=== PATIENT | male | born 1965 | race Caucasian/White ===

== ENCOUNTER 2018-08-23 09:32 | Emergency (ER) | payer OTHER ==
[~2018-08-23] VITALS: Ht 177.8 cm; Wt 73.0 kg
[2018-08-23] MEDS ORDERED: SODIUM CHLORIDE FLUSH 10ML SYR IVF ONE ×2 (10:30→12:00)
[2018-08-23 10:40] LABS: BASOPHILS # (AUTO) 0.02 x10^3/uL (0-0.1); BASOPHILS % (AUTO) 0 % (0-1); EOSINOPHILS # (AUTO) 0.09 x10^3/uL (0-0.4); EOSINOPHILS % (AUTO) 1 % (1-7); LYMPHOCYTES # (AUTO) 0.53 x10^3/uL (1-3.4); LYMPHOCYTES % (AUTO) 8 % (22-44); MD NO; MEAN CORPUSCULAR HGB CONC 32.7 g/dL (33.2-36.2); MEAN CORPUSCULAR VOLUME 76.3 fL (81-97); MEAN PLATELET VOLUME 6.8 fL (7.4-10.4); MONOCYTES # (AUTO) 0.48 x10^3/uL (0.2-0.8); MONOCYTES % (AUTO) 7 % (2-9); NEUTROPHILS # (AUTO) 5.91 x10^3/uL (1.8-6.8); NEUTROPHILS % (AUTO) 84 % (42-75); PLATELET COUNT 588 x10^3/uL (130-400); RED BLOOD COUNT 5.59 x10^6/uL (4.38-5.82); RED CELL DISTRIBUTION WIDTH 15.1 % (9.4-14.8)
[2018-08-23 10:53] LABS: ALANINE AMINOTRANSFERASE 13 U/L (12-78); ALBUMIN 2.8 g/dL (3.4-5.0); ANION GAP 8 mmol/L (5-15); CALCIUM 8.5 mg/dL (8.5-10.1); CHLORIDE 101 mmol/L (98-107); CREATININE 1.72 mg/dL (0.7-1.3)
[2018-08-23 10:55] LABS: ALKALINE PHOSPHATASE 60 U/L (45-117); BILIRUBIN,TOTAL 1.4 mg/dL (0.2-1.0); TOTAL PROTEIN 6.4 g/dL (6.4-8.2)
[2018-08-23] MEDS ORDERED: PLEASE ENTER HEIGHT AND WEIGHT MC SCH (11:00)
[2018-08-23] MEDS ORDERED: [UNRECOGNIZED DRUG - REMARK] PO (11:36)
[2018-08-23] MEDS ORDERED: LIDOCAINE-MPF 1%, 5ML ONE (11:55)
[2018-08-23] MEDS ORDERED: ALBUMIN HUMAN 25% 100 ML IV ONE (12:00)
[2018-08-23 14:17] VITALS: BP 102/61
== END 2018-08-23 14:21 | disposition home or self-care (01) ==
LOC: ED 14:15
DX: C81.90 Hodgkin lymphoma, unspecified, unspecified site (principal); R18.0 Malignant ascites; J90 Pleural effusion, not elsewhere classified
CPT/HCPCS: 32555; 36415; 49083; 74022; 80053; 82042; 83615; 85025; 87070; 87205; 88112; 88305; 89051; 96365; 99285; P9047

== ENCOUNTER 2018-09-05 00:56 | Inpatient (IN) | payer OTHER ==
[~2018-09-05] VITALS: Ht 177.8 cm; Wt 77.8 kg
[~2018-09-05 00:56] MED LIST: ALLO300T PO; ONDA8TAB16 PO; PRED50TA PO; [UNRECOGNIZED DRUG - REMARK] PO
--- NOTE | 2018-09-05 01:39 | NUR ---
PT. TO ED WITH C/O SOB R/T "IT FEELS LIKE MY LUNGS ARE FILLNIG WITH FLUID AGAIN". AT BS WITH PT. HE WAS JUST D/C LAST NIGHT. PT. 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 PT. REPORTS "THEY TAPPED MY LUNG AND MY STOMACH ON SUNDAY, I THINK IT NEEDS DONE AGAIN". PT. O2 SAT 97% ON RA; ABLE TO SPEAK IN FULL SENTENCES. CONTINUOUS PULSE OX AND B/P MONITORS PLACED. CALL LIGHT IN REACH; PT. TRANSPORTED TO X-RAY AT THIS TIME; WILL DRAW BLOOD FROM PICC UPON RETURN TO ROOM.
--- NOTE | 2018-09-05 02:05 | NUR ---
BLOOD DRAWN FROM PICC AND CLAVE CHANGED USING STERILE TECHNIQUE; BLOOD SENT TO LAB. PT. AMBULATORY TO BR WITH STEADY GAIT, HAS URINAL IN HAND AND IS READY TO PROVIDE URINE SAMPLE. PT. DECLINED TO STAY IN ROOM TO USE BSC AND INSISTED ON AMBULATING TO BR.
[2018-09-05 02:14] LABS: MEAN CORPUSCULAR HEMOGLOBIN 25.9 pg (27.5-34.5); MEAN CORPUSCULAR HGB CONC 33.1 g/dL (33.2-36.2); MEAN CORPUSCULAR VOLUME 78.2 fL (81-97); MEAN PLATELET VOLUME 6.4 fL (7.4-10.4); PLATELET COUNT 352 x10^3/uL (130-400); RED BLOOD COUNT 5.42 x10^6/uL (4.38-5.82); RED CELL DISTRIBUTION WIDTH 16.2 % (9.4-14.8)
--- NOTE | 2018-09-05 02:22 | NUR ---
LUBRICATION SERVICER PLACED WHEN PT. RETURNED FROM ROOM. URINE COLLECTED AND SENT TO LAB. CALL LIGHT IN REACH. AT BS FOR SUPPORT. DR. OSMAN IN TO EVAL PT. AND DISCUSS POC.
[2018-09-05 02:24] LABS: INTERNATIONAL NORMALIZED RATIO 1.01 (0.93-1.1); PROTHROMBIN TIME 10.7 Seconds (9.6-11.5)
[2018-09-05 02:28] LABS: MICROSCOPIC AUTO
[2018-09-05 02:28] LABS: ALANINE AMINOTRANSFERASE 11 U/L (12-78); ALBUMIN 1.9 g/dL (3.4-5.0); ANION GAP 6 mmol/L (5-15); CHLORIDE 108 mmol/L (98-107); CREATININE 0.97 mg/dL (0.7-1.3)
[2018-09-05 02:29] LABS: CULTURE INDICATED? NO
[2018-09-05 02:33] LABS: ALKALINE PHOSPHATASE 48 U/L (45-117); BASOPHILS % (AUTO) 0 % (0-1); EOSINOPHILS # (AUTO) 0.01 x10^3/uL (0-0.4); EOSINOPHILS % (AUTO) 0 % (1-7); LYMPHOCYTES # (AUTO) 0.23 x10^3/uL (1-3.4); LYMPHOCYTES % (AUTO) 1 % (22-44); MD SCAN; MONOCYTES # (AUTO) 0.09 x10^3/uL (0.2-0.8); MONOCYTES % (AUTO) 0 % (2-9); NEUTROPHILS # (AUTO) 27.99 x10^3/uL (1.8-6.8); NEUTROPHILS % (AUTO) 99 % (42-75); TOTAL PROTEIN 4.7 g/dL (6.4-8.2)
--- NOTE | 2018-09-05 02:54 | NUR ---
VS UPDATED. PT. CHART UP FOR RECHECK BY BRAULIO. PT. NIKOINS RESTING ON GURNEY IN SITTING POSITION. O2 SAT REMAINS 95% ON RA. PT. DENIES NEEDS AT THIS TIME. CALL LIGHT IN REACH. ALL SAFETY MEASURES OBSERVED. REMAINS AT BS FOR SUPPORT.
--- NOTE | 2018-09-05 03:51 | NUR ---
PT. CONTINUES RESTING ON GURNEY WITH NADN. VS UPDATED. PT. VISIBLY UPSET OVER BEING ADMITTED TO HOSPITAL BUT IS AGREEABLE WITH POC. REMAINS AT BS. PT. UPDATED ON ROOM #; AWATING RN TO CALL FOR REPORT; WILL CALL IF NO CALL RECEIVED. PT. DENIES NEEDS FROM THIS RN. ALL SAFETY MEASURES OBSERVED.
[2018-09-05] MEDS ORDERED: ONDANSETRON 2MG/ML, 2ML IVPush PRN ×2 (04:00→05:00)
[2018-09-05] MEDS ORDERED: MORPHINE SULFATE 4 MG/ML, 1ML IVPush PRN (04:00)
--- NOTE | 2018-09-05 04:01 | NUR ---
FIRST ATTEMPT TO CALL REPORT TO FLOOR.
--- NOTE | 2018-09-05 04:04 | NUR ---
REPORT TO RENETTA MONTEJO. FLOOR READY FOR PT. TRANSPORT.
[2018-09-05 04:33] VITALS: BP 121/90
[2018-09-05] MEDS ORDERED: hydrALAzine 20 MG/ML, 1ML IVPush PRN (05:00)
[2018-09-05] MEDS ORDERED: ACETAMINOPHEN 325 MG TABLET PO PRN (05:00)
[2018-09-05] MEDS ORDERED: IBUPROFEN 600 MG TABLET PO PRN (05:00)
[2018-09-05] MEDS ORDERED: GUAIFENESIN/DM 200-20MG, 10ML UDC PO PRN (05:00)
[2018-09-05] MEDS ORDERED: morphine SULFATE 10 MG/ML, 1ML IVPush PRN (05:00)
[2018-09-05] MEDS ORDERED: ONDANSETRON ODT 4 MG PO PRN (05:00)
[2018-09-05] MEDS: HEPARIN 5,000 UNITS/ML, 1ML SQ SCH ×2 (05:00→12:46)
[2018-09-05] MEDS ORDERED: POLYETHYLENE GLYCOL 17 GM PACKET PO PRN (05:00)
[2018-09-05] MEDS ORDERED: ZOLPIDEM 5MG TABLET PO PRN (05:00)
[2018-09-05] MEDS ORDERED: KETOROLAC 30 MG/1 ML IV PRN (05:00)
[2018-09-05 06:37] LABS: % IRON SATURATION 92 % (20-55); IRON LEVEL 247 mcg/dL (65-175); TOTAL IRON BINDING CAPACITY 268 mcg/dL (250-450)
[2018-09-05] MEDS ORDERED: ALBUMIN HUMAN 25% 50 ML IV ONE (07:30)
[2018-09-05 08:00] VITALS: BP 100/64
[2018-09-05] MEDS ORDERED: ALLOPURINOL 300 MG TABLET PO SCH (09:00)
[2018-09-05] MEDS ORDERED: SODIUM CHLORIDE FLUSH 10ML SYR IVF SCH (09:00)
[2018-09-05] MEDS ORDERED: LIDOCAINE-MPF 1%, 5ML ONE ×2 (11:19)
[2018-09-05 13:20] VITALS: BP 103/69
== END 2018-09-05 14:15 | disposition home or self-care (01) | DRG 840 ==
LOC: ED 01:36 → EDIP 03:33 → 3NW 04:26
PROVIDERS: ADMIT Hospitalist; ATTEND Hospitalist
PROC: 0W9G3ZZ Drainage of Peritoneal Cavity, Percutaneous Approach (ICD-10-PCS; principal; 2018-09-05)
PROC: 0W993ZZ Drainage of Right Pleural Cavity, Percutaneous Approach (ICD-10-PCS; 2018-09-05)
DX: C82.18 Follicular lymphoma grade II, lymph nodes of multiple sites (principal); E43 Unspecified severe protein-calorie malnutrition; J91.0 Malignant pleural effusion; Z88.8 Allergy status to other drugs, medicaments and biological substances; D72.829 Elevated white blood cell count, unspecified; Z68.24 Body mass index [BMI] 24.0-24.9, adult
CPT/HCPCS: 32555; 36415; 49083; 74022; 80053; 81001; 82042; 82945; 83540; 83550; 83615; 83880; 85025; 85610; 85730; 87070; 87205; 89051; 93005; 99285; G0378; P9047